=== PATIENT | male | born 1935 | race Caucasian/White ===

== ENCOUNTER 2016-06-22 05:18 | Inpatient (IN) | payer MEDICARE ==
[2016-06-22] VITALS (82 sets, daily range): BP systolic 82–161; BP diastolic 38–88
[~2016-06-22] VITALS: Ht 162.6 cm; Wt 55.8 kg
[2016-06-22] MEDS ORDERED: IV SET PRIMARY 1 EA INFUS.SET MC ONE ×3 (05:55→06:40)
[2016-06-22] MEDS ORDERED: IV NS 0.9% 500 ML IV ONE ×2 (05:55→14:00)
[2016-06-22] MEDS ORDERED: IV NS 0.9% 500 ML BAG IV ONE (06:00)
[2016-06-22 06:10] LABS: BASOPHILS # (AUTO) 0.1 /CMM (0.0-0.2); BASOPHILS % (AUTO) 0.4 % (0.0-2.0); EOSINOPHILS # (AUTO) 0.3 /CMM (0.0-0.7); EOSINOPHILS % (AUTO) 0.8 % (0.0-6.0); HEMATOCRIT 29 % (39-51); LYMPHOCYTES % (AUTO) 5.4 % (20.0-44.0); MEAN CORPUSCULAR HEMOGLOBIN 26 PG (26.0-33.0); MEAN CORPUSCULAR HGB CONC 31 g/dl (31.0-36.0); MEAN CORPUSCULAR VOLUME 85 fL (80-96); MONOCYTES # (AUTO) 0.2 /CMM (0.1-1.30); MONOCYTES % (AUTO) 0.6 % (2.0-12.0); NEUTROPHILS # (AUTO) 33.6 /CMM (1.8-8.9); NEUTROPHILS % (AUTO) 92.8 % (43.0-81.0); PLATELET COUNT (AUTO) 409 /CMM (150-450)
[2016-06-22 06:17] LABS: WHITE BLOOD COUNT (AUTO) 36.2 K/uL (4.3-11.0)
[2016-06-22] MEDS ORDERED: IV NS 0.9% 1,000 ML ONE ×3 (06:21→08:15)
[2016-06-22] MEDS ORDERED: CEFTRIAXONE 1GM BAG (ER ONLY) 50 ML IV ONE ×2 (06:21→06:30)
[2016-06-22 06:25] LABS: SODIUM SERUM 138 mmol/L (136-145)
[2016-06-22 06:26] LABS: CALCIUM, SERUM 8.5 mg/dL (8.5-10.1); CARBON DIOXIDE 30 mmol/L (21-32); CHLORIDE 102 mmol/L (98-107); GLUCOSE 89 mg/dL (74-106)
[2016-06-22 06:27] LABS: CREATININE 4.8 mg/dL (0.6-1.3); UREA NITROGEN, BLOOD 28 mg/dL (7-18)
[2016-06-22 06:29] LABS: TROPONIN I < 0.017 ng/mL (0.00-0.056)
[2016-06-22] MEDS ORDERED: VANCOMYCIN 1 GM in IV D5W 250 ML IV ONE ×2 (06:30→10:00)
[2016-06-22] MEDS ORDERED: IV NS 0.9% 1,000 ML BAG IV ONE ×4 (06:30→11:10)
[2016-06-22] MEDS ORDERED: AZITHROMYCIN 500 MG in IV D5W 250 ML IV ONE (06:30)
[2016-06-22 06:31] LABS: LACTIC ACID 1.3 mmol/L (0.4-2.0)
[2016-06-22 06:32] LABS: ALANINE AMINOTRANSFERASE 6 U/L (12-78); ALBUMIN 2.7 g/dL (3.4-5.0); ALKALINE PHOSPHATASE 114 U/L (46-116); ANISOCYTOSIS 1+; ASPARTATE AMINOTRANSFERASE 12 U/L (15-37); BAND % (MANUAL) 5 % (0.0-5.0); BILIRUBIN,DIRECT 0.1 mg/dL (0.0-0.2); BILIRUBIN,TOTAL 0.4 mg/dL (0.2-1.0); HYPOCHROMASIA 1+; INR 1.16 (0.87-1.13); LYMPHOCYTES % (MANUAL) 4 % (16-48); METAMYELOCYTES % 1 % (0-0); MONOCYTES % (MANUAL) 2 % (0-11.0); NEUTROPHILS % (MANUAL) 88 (42-76); PLATELET ESTIMATE INCREASED; PROTHROMBIN TIME 12.5 SECS (9.5-12.7)
[2016-06-22 06:33] LABS: OVALOCYTES FEW; TOTAL PROTEIN, SERUM 5.4 g/dL (6.4-8.2)
[2016-06-22] MEDS ORDERED: DOPamine 400 MG/D5W 250 ML RTU PIGGYBACK IV ONE (07:00)
[2016-06-22] MEDS ORDERED: DOPamine 400MG/D5W 250ML RTU 250 ML IV ONE (07:01)
[2016-06-22] MEDS ORDERED: IV SET PRIMARY PUMP SET 1 EA INFUS.SET MC ONE ×8 (07:01→15:40)
--- NOTE | 2016-06-22 07:02 | NUR ---
ATTEMPTED TO CALL PHARMACY FOR DOPAMINE DRIP; NO ANSWER.
--- NOTE | 2016-06-22 07:15 | NUR ---
DR. GOMES AT BS FOR CENTRAL LINE PLACEMENT.
--- NOTE | 2016-06-22 07:22 | NUR ---
BP 73/35 RECEIVED ORDERS TO INCREASE DOPAMINE TO 10MCG. ORDERS CARRIED OUT.
--- NOTE | 2016-06-22 07:25 | NUR ---
BP 71/40 PER MD TO INCREASE DOPAMINE TO 20MCG. ORDERS CARRIED OUT.
--- NOTE | 2016-06-22 07:41 | NUR ---
BP REMAINS LOW, PER MD TO INCREASE DOPAMINE TO 30MCG. ORDERS CARRIED OUT.
--- NOTE | 2016-06-22 07:46 | NUR ---
PT REPORT GIVEN TO ARTIE ALAS FOR DANI
--- NOTE | 2016-06-22 07:56 | NUR ---
CALLED [facility] SIGNAL WORKER, TO PAGE FOR PICC LINE INSERTION.
--- NOTE | 2016-06-22 08:15 | NUR ---
PAGED MERIT SYSTEM DIRECTOR FOR [facility] DR MARQUEZ
--- NOTE | 2016-06-22 08:20 | NUR ---
CALLED LEAD BUSINESS SYSTEMS ANALYST FOR [facility] FOR ICU BED
--- NOTE | 2016-06-22 08:21 | NUR ---
EVETTE HOLMAN AT FOR PICC LINE INSERTION. CONSENT OBTAINED PRIOR TO PICC LINE INSERTION.
--- NOTE | 2016-06-22 08:27 | NUR ---
PT ASSIGNED ICU 250 - CAN GO UP IN 20 MINUTES
--- NOTE | 2016-06-22 08:50 | NUR ---
LAISHA AT BS.
[2016-06-22] MEDS ORDERED: PANT40TA2 PO (08:57)
[2016-06-22] MEDS ORDERED: CALC667C6 PO (08:57)
[2016-06-22] MEDS ORDERED: LEVO200T8 PO (08:57)
[2016-06-22] MEDS ORDERED: ASPI81TA2 PO (08:57)
[2016-06-22] MEDS ORDERED: MAGN64TA9 PO (08:57)
[2016-06-22] MEDS ORDERED: TAMS0.4C34 PO (08:57)
[2016-06-22] MEDS ORDERED: FOLI0.8T PO (08:57)
[2016-06-22] MEDS ORDERED: ALLO100T PO ×2 (08:57→13:21)
[2016-06-22] MEDS ORDERED: APIX5TAB PO (08:57)
[2016-06-22] MEDS ORDERED: LEVO25TA9 PO (08:57)
[2016-06-22] MEDS ORDERED: CLIN300C97 PO (08:58)
--- NOTE | 2016-06-22 09:00 | NUR ---
DR. MARQUEZ AT BS FOR ABDIAL.
--- NOTE | 2016-06-22 09:05 | NUR ---
CALLED ICU FOR REPORT, NO NURSE ASSIGNED. WAITING FOR CALL BACK.
[2016-06-22] MEDS ORDERED: ONDANSETRON HCL/PF 4 MG/2 ML VIAL ONE (09:09)
--- NOTE | 2016-06-22 09:10 | NUR ---
DOPAMINE TITRATED DOWN PER PROTOCOL.
[2016-06-22] MEDS ORDERED: ONDANSETRON HCL/PF 4 MG/2 ML VIAL IV ONE (09:30)
[2016-06-22] MEDS ORDERED: NOREPINEPHRINE 8 MG in IV D5W 500 ML IV PRN ×2 (10:00→11:00)
[2016-06-22] MEDS ORDERED: ONDANSETRON HCL/PF 4 MG/2 ML VIAL IVP PRN (10:00)
[2016-06-22] MEDS ORDERED: ACETAMINOPHEN 325 MG TABLET PO PRN (10:00)
--- NOTE | 2016-06-22 10:14 | NUR ---
patient transported to ICu. VSS. Acls protocol observed
[2016-06-22] MEDS ORDERED: VANCOMYCIN 500 MG in IV D5W 100 ML IV PRN (10:30)
--- NOTE | 2016-06-22 10:30 | NUR ---
ICU/RN - Admission Pt received from ER via chey with dx Septic Shock, PNA, Sepis. Pt lethargic, alert to self. On O2 @ 3lpm via nasal cannula, with o2 saturation 92%. Denies pain or discomfort. On tele reading SR 61. Hypothermic, temp 94.8, currently on bear hugger warming blanket. Straight cath noted in placed by ER for urine sample, but insufficient amount of urine draining for sample. Pt anuric, with history of ESRD. Skin assessment done and documented with photos taken and placed in chart. On dopamine drip, titrated down accordingly. Safety and comfort measures in place. Will continue to monitor pt closely.
[2016-06-22] MEDS ORDERED: FEE PK DOSING 1 MIN EA MC ONE (10:35)
[2016-06-22 10:53] LABS: CALCIUM, SERUM 7.4 mg/dL (8.5-10.1); CREATININE 4.3 mg/dL (0.6-1.3); POTASSIUM 3.4 mmol/L (3.5-5.1)
[2016-06-22 11:00] LABS: ALBUMIN 2.4 g/dL (3.4-5.0); BILIRUBIN,DIRECT 0.1 mg/dL (0.0-0.2); BILIRUBIN,TOTAL 0.4 mg/dL (0.2-1.0)
[2016-06-22 11:03] LABS: LACTIC ACID 0.9 mmol/L (0.4-2.0)
[2016-06-22] MEDS ORDERED: SECONDARY IV SET 1 EA INFUS.SET MC ONE (11:05)
[2016-06-22] MEDS: PANTOPRAZOLE 40 MG VIAL IV SCH (11:10)
--- NOTE | 2016-06-22 11:35 | NUR ---
ICU/RN - Notes Pt noted to be hypoxic on O2 @ 6lpm via nasal cannula, O2 saturation 88%. Pt noted to be more confused, difficult to arouse and lethargic. Received orders from Dr De La Cruz for ABG and Pulmonolgist consult.
[2016-06-22 11:41] LABS: ABG BASE EXCESS -2.4 mmol/L; ABG OXYGEN SATURATION 91.1 % (92.0-98.5); ABG PCO2 64.7 mmHg (35.0-45.0); ABG PH 7.219 (7.350-7.450); ABG PO2 75.1 mmHg (75.0-100.0); ABG TOTAL HEMOGLOBIN 9.3 G/dL (13.5-18.0); AaDO2 172.2 mmHg; COHb 1.1 % (0.5-1.5); MetHb 1.3 % (0.0-1.5); O2Hb 88.9 % (94.0-97.0); SITE, ABG Right Radial; VENT MODE, BG SIMPLE MASK
--- NOTE | 2016-06-22 11:55 | NUR ---
ICU/RN - Notes Pt intubated by ER MD as ordered by Dr Pierre. Levophed drip titrated accordingly. Will start Diprivan sedation as blood pressure becomes optimal.
--- NOTE | 2016-06-22 11:59 | NUR ---
RT REPORT: ASSIT DR. GOMES, ( ) FOR PT. 80 Y OLD MALE INTUBATED @ 1153 ETT #7.5 @ 23 CM GOOD COLOR EXCHANGED T/O CAPNOGRAPHY PLACED ON VENT WITH NOTED SETTINGS, ALARMS ARE SET AND FUNCTIONAL, B/S RALES/RHONCHI BILATERALLY SUX' FOR MINIMAL BURGESS SECRETIONS, NO DISTRESS NOTED CONTINUED FOR MONITOR. VENT PLUGGED INTO RED OUTLET. EQUAL CHEST RISE NOTED PT. AMBU BAG REMAIN AT THE BEDSIDE. Addendum: 06/22/16 at 1725 by PEPE HONG RT Amended: Links added.
[2016-06-22] MEDS ORDERED: PIPERACILLIN /TAZOBACTAM 3.375 G in IV D5W 50 ML IV SCH (12:00)
[2016-06-22] MEDS: IV NS 0.9% 1,000 ML IV PRN ×2 (12:00→13:12)
[2016-06-22] MEDS: PIPERACILLIN /TAZOBACTAM 2.25 G in IV D5W 50 ML IV SCH ×2 (12:09→20:33)
[2016-06-22] MEDS: PROPOFOL 100 ML IV PRN (12:16)
[2016-06-22 13:13] LABS: ABG BASE EXCESS -1.9 mmol/L; ABG OXYGEN SATURATION 98.6 % (92.0-98.5); ABG PCO2 28.7 mmHg (35.0-45.0); ABG PO2 190.7 mmHg (75.0-100.0); ABG TOTAL HEMOGLOBIN 9.5 G/dL (13.5-18.0); AaDO2 493.6 mmHg; MetHb 1.2 % (0.0-1.5); O2Hb 96.4 % (94.0-97.0); SITE, ABG Right Brachial; VT, ABG 500 mL
--- NOTE | 2016-06-22 13:20 | NUR ---
RT CHANGES: POST ABG @ 1320 RR DECREASED TO 12 TIDAL VOLUME DECREASED TO 450 ML (PRE SCHOOL TEACHER)PER DR. MARTINEZ T/O ORDER. PT. ROSA MARIA. SETTINGS. CONTINUE FOR MONITORING. FIO2 WILL BE TITRATED Addendum: 06/22/16 at 1725 by PEPE HONG RT Amended: Links added.
[2016-06-22] MEDS ORDERED: ATEN25TA PO (13:21)
[2016-06-22] MEDS ORDERED: EPOETIN ALFA (10,000 UNIT) 10,000 UNIT/ML VIAL SQ ONE (14:30)
[2016-06-22] MEDS ORDERED: PHENYLEPHRINE 80 MG in IV D5W 250 ML IV PRN ×4 (15:00)
[2016-06-22] MEDS ORDERED: NOREPINEPHRINE 16 MG in IV D5W 500 ML IV PRN (16:00)
[2016-06-22] MEDS: NOREPINEPHRINE 16 MG in IV D5W 500 ML IV PRN (16:31)
--- NOTE | 2016-06-22 17:00 | NUR ---
ICU/RN - Notes Hemodialysis completed with 1.5 L output. Vital signs optimal.
--- NOTE | 2016-06-22 17:05 | NUR ---
ICU/RN - Notes Specialty air mattress ordered for pt, but per [employer], no supply in air mattress at this time, will be available tomorrow morning.
--- NOTE | 2016-06-22 17:24 | NUR ---
RT END OF THE SHIFT REPORT: PT. 80 Y OLD MALE REMAIN ORALLY INTUBATED ETT#7.5 @ 23CM ON VENT WITH NOTED SETTINGS, ALARMS ARE SET AND FUNCTIONAL, B/S RALES/RHONCHI BILATERALLY SUX' FOR MINIMAL BURGESS SECRETIONS, NO DISTRESS NOTED T/O SHIFT CHANGES DONE POST ABG T/O SHIFT. CONTINUED FOR MONITOR. VENT PLUGGED INTO RED OUTLET. EQUAL CHEST RISE NOTED. HME CHANGED, AMBU BAG REMAIN AT THE BEDSIDE. PT. REMAIN STABLE. REPORT WILL BE PASS TO PM SHIFT. Addendum: 06/22/16 at 1725 by PEPE HONG RT Amended: Links added.
--- NOTE | 2016-06-22 17:52 | NUR ---
ICU/RN - Notes Medina catheter inserted, minimum urine noted, pt anuric at this time. Oral tube inserted as ordered with positive placement auscultated.
--- NOTE | 2016-06-22 18:45 | NUR ---
ICU/RN - Notes Pt remains sedated on Diprivan drip. Levophed titrated accordingly. Current temp 99.2 F. Pt repositioned for comfort. Bilateral heels kept elevated. Family at bedside. Will endorse to night nurse for continuity of care.
--- NOTE | 2016-06-22 20:00 | NUR ---
FREIGHT HANDLER - NOTES - RECEIVED PT IN BED ADMITTED FOR SEPTIC SHOCK, PNA, PT IS INTUBATED W 7.5 ETT 23 CM AT LIP VENT SETTINGS AC 12 450 40% 0. PT HAS OGT CLAMPED, NPO. PT HAS F/C BUT NO URINE OUTPUT, LAST HD 06/22 1.5 L OUT. PT HAS REDNESS ON SACRUM AND REDNESS ON BILAT HEELS, AND SKIN TEAR RIGHT FOREARM. PT HAS JESSICA PICC LINE, R FA 18G, F AC 18G, L SUBCLAV PERMACATH AND LIDYA AV FISTULA. WILL CONTINUE TO MONITOR
--- NOTE | 2016-06-22 20:18 | NUR ---
PT RECEIVED ON VENT VIA ETT, SETTINGS CHARTED AMBU BAG AT BEDSIDE ALARMS SET AND AUDIBLE SUCTIONED A SMALL AMOUNT OF THICK WHITE SECRETIONS BREATH SOUNDS EQUAL BILATERAL COARSE PT RECEIVING NO BREATHING TX AT THIS TIME Addendum: 06/22/16 at 2020 by RALPH COMER RT Amended: Links added.
[2016-06-23] VITALS (97 sets, daily range): BP systolic 92–120; BP diastolic 35–61
[2016-06-23 04:33] LABS: BASOPHILS # (AUTO) 0.3 /CMM (0.0-0.2); BASOPHILS % (AUTO) 0.5 % (0.0-2.0); HEMATOCRIT 30 % (39-51); HEMOGLOBIN 9.4 g/dL (13.5-17.5); LYMPHOCYTES # (AUTO) 2.1 /CMM (0.8-4.8); LYMPHOCYTES % (AUTO) 3.6 % (20.0-44.0); MEAN CORPUSCULAR HEMOGLOBIN 27 PG (26.0-33.0); MEAN CORPUSCULAR HGB CONC 32 g/dl (31.0-36.0); MEAN CORPUSCULAR VOLUME 85 fL (80-96); MONOCYTES # (AUTO) 0.6 /CMM (0.1-1.30); MONOCYTES % (AUTO) 1.1 % (2.0-12.0); NEUTROPHILS # (AUTO) 55.8 /CMM (1.8-8.9); NEUTROPHILS % (AUTO) 94.8 % (43.0-81.0); PLATELET COUNT (AUTO) 521 /CMM (150-450); RDW COEFFICIENT OF VARIATION 26.5 (11.5-15.0)
[2016-06-23 04:39] LABS: WHITE BLOOD COUNT (AUTO) 58.8 K/uL (4.3-11.0)
--- NOTE | 2016-06-23 05:00 | NUR ---
WBC 58.8 CRITICAL HIGH LAB VALUE, PT ON ABX, NOT IN ANY DISTRESS, WILL CONTINUE TO MONITOR
[2016-06-23] MEDS: PIPERACILLIN /TAZOBACTAM 2.25 G in IV D5W 50 ML IV SCH ×3 (05:04→20:27)
[2016-06-23 05:26] LABS: ALBUMIN 2.2 g/dL (3.4-5.0); BILIRUBIN,TOTAL 0.4 mg/dL (0.2-1.0); CALCIUM, SERUM 7.2 mg/dL (8.5-10.1); CREATININE 4.3 mg/dL (0.6-1.3); MAGNESIUM 1.6 mg/dL (1.8-2.4); PHOSPHORUS 3.2 mg/dL (2.5-4.9); POTASSIUM 3.7 mmol/L (3.5-5.1); TOTAL PROTEIN, SERUM 4.7 g/dL (6.4-8.2)
[2016-06-23] MEDS ORDERED: IV SET PRIMARY PUMP SET 1 EA INFUS.SET MC ONE ×2 (05:28→17:53)
[2016-06-23 05:35] LABS: BAND % (MANUAL) 3 % (0.0-5.0); LYMPHOCYTES % (MANUAL) 2 % (16-48); MONOCYTES % (MANUAL) 3 % (0-11.0); NEUTROPHILS % (MANUAL) 92 (42-76); PLATELET ESTIMATE GIANT PLATELET SEEN
[2016-06-23 05:36] LABS: ANISOCYTOSIS 3+; HYPOCHROMASIA 3+
[2016-06-23] MEDS: NOREPINEPHRINE 16 MG in IV D5W 500 ML IV PRN ×2 (07:07→12:08)
[2016-06-23] MEDS: PROPOFOL 100 ML IV PRN ×2 (07:08→17:57)
[2016-06-23] MEDS: IV NS 0.9% 1,000 ML IV PRN (07:09)
--- NOTE | 2016-06-23 08:00 | NUR ---
ICU/RN PT IS INTUBATED ON THE VENT ,AC MODE.SEDATED ON DIPRIVAN.OL LEVOPHED DRIP.RIGHT ARM HAS PICC LINE .IV INFUSING ORDERED.PT HAS ESRD ON HD .LEFT ARM FISTULA .LFT CHEST HD CATH.PT IS ANURIC.MULTIPLY BRUISES AND SKIN TEARS NOTED ALL OVER THE BODY.REDNESS ON LOWER BACK NOTED.KCI MATRASS ORDERED.SUCTION PROVIDED.REPOSITION FOR COMFORT
[2016-06-23] MEDS: PANTOPRAZOLE 40 MG VIAL IV SCH (08:39)
[2016-06-23 08:59] LABS: ABG BASE EXCESS -1.5 mmol/L; ABG OXYGEN SATURATION 96.5 % (92.0-98.5); ABG PCO2 52.9 mmHg (35.0-45.0); ABG PH 7.297 (7.350-7.450); ABG PO2 98.9 mmHg (75.0-100.0); ABG TOTAL HEMOGLOBIN 9.7 G/dL (13.5-18.0); AaDO2 125.5 mmHg; COHb 0.9 % (0.5-1.5); MetHb 1.1 % (0.0-1.5); O2Hb 94.6 % (94.0-97.0); PEEP,BG 0 cm H2O; SITE, ABG Left Brachial; VT, ABG 450 mL
--- NOTE | 2016-06-23 09:12 | NUR ---
WOUND CARE CONSULT: PT PRESENTS WITH INTACT DEEP TISSUE INJURY TO SACRUM, BRUISING AND SKIN TEARS, PRESENT ON ADMISSION. PT TO BE PLACED ON FIRST STEP MATTRESS. PT IS IMMOBILE, INTUBATED AND VERY EDEMATOUS (4+ PITTING EDEMA TO LOWER EXTREMITIES. SKIN IS VERY FRAGILE AND TEARS EASILY. ALL SKIN PROTECTION MEASURES AND WOUND RECOMMENDATIONS DISCUSSED WITH NURSING STAFF. MD IN AGREEMENT WITH PLAN OF CARE. Addendum: 06/23/16 at 0914 by WALE BROWNING WNDNU Amended: Links added.
[2016-06-23] MEDS: ASPIRIN 81 MG TAB.CHEW PO SCH (09:32)
[2016-06-23] MEDS ORDERED: LIDOCAINE 1%-EPI 1:100,000 20 ML VIAL TP ONE (10:00)
[2016-06-23] MEDS ORDERED: SECONDARY IV SET 1 EA INFUS.SET MC ONE (10:18)
--- NOTE | 2016-06-23 10:30 | NUR ---
ICU/RN DR BRADSHAW REMOVED LEFT CHEST HD CATH.NEW DRESSING APPLIED.PT TOLERATED WELL.LABS REVIEW.NEW ORDERS RECEIVED FAMILY AT BEDSIDE.
[2016-06-23] MEDS: Magnesium 1GM/D5W 100ML PREMIX 100 ML IV SCH ×3 (11:47→12:07)
--- NOTE | 2016-06-23 17:00 | NUR ---
ICU/RN PM CARE PROVIDED.PT PLACED ON KCI MATRASS.NEW PICC LINE DRESSING APPLIED.WOUND DRESSING DONE ORDERED.SUCTION PROVIDED.REPOSITION FOR COMFORT.CONTINUE MONITORING
[2016-06-23] MEDS: MICAFUNGIN SODIUM 100 MG in IV NS 0.9% 100 ML IV SCH (19:30)
--- NOTE | 2016-06-23 19:49 | NUR ---
SALES AND CUSTOMER RELATIONS REP - NOTES - RECEIVED PT IN BED ADMITTED FOR SEPTIC SHOCK, PNA, PT IS INTUBATED W 7.5 ETT 23 CM AT LIP VENT SETTINGS AC 12 500 40% 0. PT HAS OGT CLAMPED, NPO. PT HAS F/C BUT NO URINE OUTPUT, LAST HD 06/22 1.5 L OUT. PT HAS REDNESS ON SACRUM AND REDNESS ON BILAT HEELS, AND SKIN TEAR RIGHT FOREARM. PT HAS JESSICA PICC LINE, R FA 18G, F AC 18G, AND LIDYA AV FISTULA. WILL CONTINUE TO MONITOR
--- NOTE | 2016-06-23 22:01 | NUR ---
PT RECEIVED INTUBATED WITH 7.5 ETT SECURED AT 23CM AT THE LIP. NO RESP DISTRESS NOTED. PT TOLERATING VENT SETTINGS. SX'D FOR MOD AMT OF THICK WHITE SECRETIONS. VENT ALARMS SET AND AUDIBLE. AMBU BAG AT [facility]. VENT PLUGGED INTO RED OUTLET. WILL CONTINUE TO MONITOR. Addendum: 06/23/16 at 2208 by HERMINIO HINES RT Amended: Links added.
--- NOTE | 2016-06-23 23:00 | NUR ---
PT PLACED ON BIPAP FOR NIGHT Addendum: 06/24/16 at 0728 by ARJUN QUINTANA RN WRONG PT
[2016-06-24] VITALS (79 sets, daily range): BP systolic 88–131; BP diastolic 34–61
--- NOTE | 2016-06-24 03:00 | NUR ---
PT WANTS BIPAP OFF, PLACED ON NONREBREATHER, TOLERATING WELL Addendum: 06/24/16 at 0727 by ARJUN QUINTANA RN WRONG PT
[2016-06-24 05:00] LABS: HEMATOCRIT 27 % (39-51); HEMOGLOBIN 8.5 g/dL (13.5-17.5); MEAN CORPUSCULAR HEMOGLOBIN 27 PG (26.0-33.0); MEAN CORPUSCULAR HGB CONC 32 g/dl (31.0-36.0); MEAN CORPUSCULAR VOLUME 84 fL (80-96); PLATELET COUNT (AUTO) 448 /CMM (150-450); RED BLOOD CELL COUNT(AUTO) 3.18 MIL/uL (4.5-6.0)
[2016-06-24] MEDS: PIPERACILLIN /TAZOBACTAM 2.25 G in IV D5W 50 ML IV SCH ×3 (05:04→21:46)
[2016-06-24 05:18] LABS: WHITE BLOOD COUNT (AUTO) 54.8 K/uL (4.3-11.0)
[2016-06-24 05:24] LABS: CALCIUM, SERUM 7.2 mg/dL (8.5-10.1); CREATININE 4.7 mg/dL (0.6-1.3); MAGNESIUM 2.6 mg/dL (1.8-2.4); PHOSPHORUS 4.3 mg/dL (2.5-4.9); POTASSIUM 4.2 mmol/L (3.5-5.1)
[2016-06-24] MEDS ORDERED: IV SET PRIMARY PUMP SET 1 EA INFUS.SET MC ONE ×3 (05:37→15:40)
--- NOTE | 2016-06-24 05:50 | NUR ---
PT PLACED BACK ON BIPAP PER PT REQUEST.
[2016-06-24 05:53] LABS: PLATELET ESTIMATE INCREASED
[2016-06-24 05:54] LABS: ANISOCYTOSIS 3+; HYPOCHROMASIA 2+
[2016-06-24] MEDS: PROPOFOL 100 ML IV PRN ×2 (06:00→16:14)
[2016-06-24] MEDS: IV NS 0.9% 1,000 ML IV PRN (06:00)
--- NOTE | 2016-06-24 06:00 | NUR ---
PT COULD NOT TOLERATE BIPAP, SO PT WAS PLACED BACK ON NONREBREATHER, 02SAT >94%, TOLERATING WELL, NO SEVERE DISTRESS Addendum: 06/24/16 at 0727 by ARJUN QUINTANA RN WRONG PT
[2016-06-24] MEDS: NOREPINEPHRINE 16 MG in IV D5W 500 ML IV PRN ×2 (06:01→18:01)
--- NOTE | 2016-06-24 07:15 | NUR ---
SUBWAY REPAIR SUPERVISOR NOTES RECEIVED PATIENT SEDATED , RESPONSIVE TO PAIN STIMULI , NOT IN ACUTE DISTRESS , RESPIRATIONS EVEN AND UNLABORED , SPO2 OF 100% VIA MECHANICAL VENTILATOR SETTINGS ORDERED , ETT 7.08/[address] , SB 58 ON BEDSIDE MONITOR , OJT IN PLACED M VERFIIED PLACEMENT VIA AUSCULTATION NOTED WITH GURGLING SOUND AROUND STOMACH AREA , FC DRAINING VIA GRAVITY WITH 3ML URINE CLOUDY TEA COLORED URINE , ON KCI MATTRESS , IF OF R FA # 20 PATENT AND INTACT , JESSICA PICC LINE PATENT AND INTACT WITH LEVOPHED @ 4MG/MIN , NS @ 50ML/HR INFUSING WELL , LIDYA AV SHUNT WITH BRUIT AND THRILL UP[ON PALPATION , ALL NEED ATTENDED , BED ON LOW AND LOCKED POSITION , SIDE RAILS X2 , HOB @ 35 , WILL CONTINUE TO MONITOR
--- NOTE | 2016-06-24 08:10 | NUR ---
HOUSEHOLD ASSISTANT NOTES DR MARQUEZ AT BEDSIDE , DISCUSSED AM LABS AND CHEST XRAY , WBC OF 54.8 NO FEVER , NO HEMATOLOGY CONSULT DONE , WEANING FOR TODAY PER PULMO , PT HAS NO URINE OUTPUT, PER MD DC COPELAND CATHETER , VERIFIED IVF OF NS @ 50ML/HR CHEST XRAY RESULT SHOWS WORSENING CHF , PER MD DISCONTINUE IVF , START TUBE FEEDING OF NOVASOURCE @ 40ML/HR , ORDERS CARRIED OUT
[2016-06-24] MEDS: ASPIRIN 81 MG TAB.CHEW PO SCH (08:46)
[2016-06-24] MEDS: PANTOPRAZOLE 40 MG VIAL IV SCH (08:46)
--- NOTE | 2016-06-24 09:00 | NUR ---
DRILLING ENGINEERING MANAGER NOTES HD NURSE AT BEDSIDE , PT STABLE AT THIS TIME , V/S STABLE , NOT IN AC [place] DISTRESS , , LEVOPHED INCREASED TO 5MCG/MIN FOR BP SUPPORT WITH HD , WILL CONTINUE TO MONITOR
--- NOTE | 2016-06-24 09:11 | NUR ---
BANDER AND CELLOPHANER MACHINE NOTES DR GILLILAND AT BEDSIDE , NOTIFIED PT ON LEVOPHED @ 2MCG/MIN , BP OF 101/55 , NO URINE OUTPUT FC DISCONTINUED , IVF DISCONTINUED PER DR MAQRUEZ ORDERED , DISCUSSED AM LABS AND CHEST XRAY RESULT MD CLEANING
--- NOTE | 2016-06-24 09:31 | NUR ---
METAL TECHNICIAN NOTES DR MARTINEZ AT BEDSIDE , NOTIFIED PT IS OFF DIPRIVAN SINCE 0700 AM , PT STILL SEDATED , RESPONSIVE TO TACTILE STIMULI , OPENS EYES , DOESNT FOLLOWS COMMANDS , PER MD KEEP SEDATION OFF UNTIL PT IS FULLY AWAKE FOR WEANING TRIAL , , DISCUSSED AM LABS , CHEST XRAY , IVF OF NS @ 50ML/HR DISCONTINUED DUE TO INCREASING CHF PER CHEST XRAY , TUBE FEEDING OF NOVASOURCE @ 40ML/HR PER DR MARQUEZ , VERIFIED IF HE WANTS TO START IT PT WILL UNDERGO WEANING TRIAL , PER MD START TUBE FEEDING AFTER WEANING TRIAL .
[2016-06-24] MEDS ORDERED: SECONDARY IV SET 1 EA INFUS.SET MC ONE ×2 (12:44→21:45)
[2016-06-24] MEDS ORDERED: IV NS 0.9% 250 ML IV ONE (12:44)
--- NOTE | 2016-06-24 13:00 | NUR ---
DANCE PROFESSOR NOTES PT STABLE S/P HEMODIALYSIS TOLERATED WELL , EPOGEN 10 000 UNITS GIVEN , BP OF 120/50 WILL TITRATE DOWN LEVOPHED TO 3MCG/MIN , WILL CONTINUE TO MONITOR
[2016-06-24] MEDS: Z GUARD REMEDY 2 OZ OINT TP PRN (13:40)
[2016-06-24] MEDS ORDERED: VANCOMYCIN 1 GM in IV D5W 250 ML IV ONE (14:00)
[2016-06-24] MEDS ORDERED: EPOETIN ALFA (10,000 UNIT) 10,000 UNIT/ML VIAL SQ ONE (15:00)
--- NOTE | 2016-06-24 15:26 | NUR ---
RT END OF THE SHIFT REPORT: PT. 80 Y OLD MALE REMAIN ORALLY INTUBATED ETT#7.5 @ 23CM ON VENT WITH NOTED SETTINGS, ALARMS ARE SET AND FUNCTIONAL, B/S RALES/RHONCHI BILATERALLY SUX' FOR MINIMAL BURGESS SECRETIONS, NO DISTRESS NOTED T/O SHIFT NOT AWAKE ENOUGH FOR WEANING CONTINUED FOR MONITOR. VENT PLUGGED INTO RED OUTLET. EQUAL CHEST RISE NOTED. HME CHANGED, AMBU BAG REMAIN AT THE BEDSIDE. PT. REMAIN STABLE. Addendum: 06/24/16 at 1526 by PEPE HONG RT Amended: Links added.
--- NOTE | 2016-06-24 15:38 | NUR ---
WEB WEAVER NOTES NOTIFIED DR MARTINEZ THAT PT STILL ALTERED , LETHARGIC SEDATION HELD SINCE 0700 , MD AWARE , CONTINUED CURRENT VENT SETTINGS , HOLD SEDATION , WILL HOLD WEANING TODAY ,
--- NOTE | 2016-06-24 16:00 | NUR ---
CRANBERRY BOG SUPERVISOR NOTES DIPRIVAN RE STARTED PT NOTED WITH DISCOMFORT , HR OF 110 , STARTED @ 5MCG/MIN , WILL CONTINUE TO MONITOR
[2016-06-24 16:12] LABS: BAND % (MANUAL) 5 % (0.0-5.0); LYMPHOCYTES % (MANUAL) 10 % (16-48); MONOCYTES % (MANUAL) 1 % (0-11.0); NEUTROPHILS % (MANUAL) 84 (42-76)
[2016-06-24] MEDS: RENAL NOVASOURCE 1,000 ML BOTTLE GT PRN (16:14)
[2016-06-24 16:17] LABS: OVALOCYTES 1+; TEAR DROP CELLS 1+
--- NOTE | 2016-06-24 20:00 | NUR ---
CISTERN ROOM WORKING SUPERVISOR NOTES RECEIVED PT IN BED, SEDATED. ON VENT VIA ETT AT ORDERED SETTINGS, ROSA MARIA WELL. TELE READS SB AT 55 BPM. NO S/S OF ACUTE DISTRESS. OGT IN PLACE RUNNING NOVASOURCE AT 40 ML/HR WITH 10 GASTRIC RESIDUAL. PT IS ANURIC. JESSICA PICC LINE RUNNING DIPRIVAN AT 5 MCG/KG/MIN AND LEVO AT 4 MCG/MIN AND NS AT TKO. LRFA 20 PIV, S/L. LIDYA AV SHUNT WITH BRUIT AND THRILL. MULTIPLE SKIN WOUNDS WITH INTACT DRESSINGS. BILATERAL MITTENS ON PATIENT FOR SAFETY AND PT PULLS ON LINES/TUBES. ON KCI MATTRESS. TURNED AND REPOSITIONED. SIDE RAILS X3. HOB ELEVATED.
--- NOTE | 2016-06-24 21:36 | NUR ---
PT RECEIVED INTUBATED WITH 7.5 ETT SECURED AT 23CM AT THE LIP. NO RESP DISTRESS NOTED. PT TOLERATING VENT SETTINGS. SX'D FOR MOD AMT OF THICK WHITE SECRETIONS. VENT ALARMS SET AND AUDIBLE. AMBU BAG AT [facility]. VENT PLUGGED INTO RED OUTLET. WILL CONTINUE TO MONITOR. Addendum: 06/24/16 at 2136 by HERMINIO HINES RT Amended: Links added.
[2016-06-24] MEDS: MICAFUNGIN SODIUM 100 MG in IV NS 0.9% 100 ML IV SCH (21:46)
[2016-06-25] VITALS (80 sets, daily range): BP systolic 74–130; BP diastolic 34–77
[2016-06-25 04:48] LABS: HEMATOCRIT 26 % (39-51); HEMOGLOBIN 8.3 g/dL (13.5-17.5); MEAN CORPUSCULAR HEMOGLOBIN 27 PG (26.0-33.0); MEAN CORPUSCULAR HGB CONC 32 g/dl (31.0-36.0); MEAN CORPUSCULAR VOLUME 84 fL (80-96); PLATELET COUNT (AUTO) 462 /CMM (150-450); RDW COEFFICIENT OF VARIATION 28.2 (11.5-15.0); RED BLOOD CELL COUNT(AUTO) 3.07 MIL/uL (4.5-6.0)
[2016-06-25 04:57] LABS: CALCIUM, SERUM 7.7 mg/dL (8.5-10.1); CREATININE 3.7 mg/dL (0.6-1.3); MAGNESIUM 2.1 mg/dL (1.8-2.4); PHOSPHORUS 3.4 mg/dL (2.5-4.9); POTASSIUM 3.8 mmol/L (3.5-5.1)
[2016-06-25] MEDS: PIPERACILLIN /TAZOBACTAM 2.25 G in IV D5W 50 ML IV SCH ×2 (04:59→12:07)
[2016-06-25 05:24] LABS: BAND % (MANUAL) 1 % (0.0-5.0); LYMPHOCYTES % (MANUAL) 4 % (16-48); MONOCYTES % (MANUAL) 3 % (0-11.0); NEUTROPHILS % (MANUAL) 92 (42-76); PLATELET ESTIMATE ADEQUATE
[2016-06-25 05:26] LABS: HYPOCHROMASIA 1+
[2016-06-25 05:27] LABS: ANISOCYTOSIS 1+; OVALOCYTES 1+; TEAR DROP CELLS 1+
[2016-06-25] MEDS: PROPOFOL 100 ML IV PRN (06:19)
--- NOTE | 2016-06-25 07:45 | NUR ---
ICU/RN PT IS ON THE VENT AC MODE.INTUBATED.SEDATED ON DIPRIVAN 5 MCG.VERY WEAK ,FOLLOWS COMMAND.RESTLESS BILATERAL MITTENS ON.RIGHT PICC LINE .PT HAS LOW BP ON LEVOPHED.OG TUBE INFUSING WITH RENAL NOVASOURCE ORDERED.NO RESIDUAL NOTED.ANURIC ON HD .LEFT UPPER ARM IV FISTULA.MULTIPLY BRUISES AND SKIN TEARS NOTED.LOWER BACK DTI AND REDNESS ON BERNARD AREA NOTED.SUCTION PROVIDED.REPOSITION FOR COMFORT.PT HAS LIQUID STOOL. NOTIFIED.NEW ORDERS RECEIVED.LABS REVIEW.
[2016-06-25] MEDS: PANTOPRAZOLE 40 MG VIAL IV SCH (08:21)
[2016-06-25] MEDS: ASPIRIN 81 MG TAB.CHEW PO SCH (08:21)
[2016-06-25] MEDS: MORPHINE SULFATE INJ 2 MG/ML DISP.SYRIN IV PRN (08:34)
[2016-06-25] MEDS ORDERED: DC PROPOFOL WHEN EXTUBATED XX PRN (09:00)
--- NOTE | 2016-06-25 09:00 | NUR ---
ICU/RN AM CARE PROVIDED.DUE MEDS ARE GIVEN ORDERED.FAMILY AT BEDSIDE.
[2016-06-25 10:06] LABS: ABG BASE EXCESS -0.7 mmol/L; ABG OXYGEN SATURATION 96.4 % (92.0-98.5); ABG PCO2 45.5 mmHg (35.0-45.0); ABG PH 7.356 (7.350-7.450); ABG PO2 97.2 mmHg (75.0-100.0); ABG TOTAL HEMOGLOBIN 8.8 G/dL (13.5-18.0); AaDO2 135.7 mmHg; MetHb 1.3 % (0.0-1.5); O2Hb 94.2 % (94.0-97.0); PEEP,BG 0 cm H2O; SITE, ABG Right Radial; VT, ABG 500 mL
--- NOTE | 2016-06-25 12:15 | NUR ---
ICU/RN PT PLACED ON SIMV MODE.DIPRIVAN STOP.CONTINUE MONITORING.
[2016-06-25] MEDS ORDERED: METRONIDAZOLE 500 MG TABLET GT SCH (13:00)
[2016-06-25 14:02] LABS: ABG BASE EXCESS -0.4 mmol/L; ABG OXYGEN SATURATION 97.8 % (92.0-98.5); ABG PCO2 41.8 mmHg (35.0-45.0); ABG PH 7.387 (7.350-7.450); ABG PO2 137.7 mmHg (75.0-100.0); ABG TOTAL HEMOGLOBIN 8.9 G/dL (13.5-18.0); AaDO2 99.4 mmHg; COHb 0.2 % (0.5-1.5); MetHb 1.5 % (0.0-1.5); O2Hb 96.1 % (94.0-97.0); PEEP,BG 5 cm H2O; SITE, ABG Right Radial; VENT MODE, BG SIMV 4 / PS 12; VT, ABG 500 mL
--- NOTE | 2016-06-25 14:05 | NUR ---
PT EXTUBATED PER MD ORDER. PLACED ON N/C ROSA MARIA WELL AT THIS TIME.
--- NOTE | 2016-06-25 14:15 | NUR ---
ICU/RN PT IS EXTUBATED .TOLERATED WELL .ON 3 L N/C ,SAT O2-100%.FAMILY AT BEDSIDE.CONTINUE MONITORING.
--- NOTE | 2016-06-25 16:20 | NUR ---
ICU/RN PM CARE PROVIDED.WOUND CARE DONE ORDERED.REPOSITION FOR COMFORT.
[2016-06-25] MEDS: NOREPINEPHRINE 16 MG in IV D5W 500 ML IV PRN (16:50)
--- NOTE | 2016-06-25 18:29 | NUR ---
ICU/RN PT IS AWAKE.ON 3L N/C SAT O2-100%.ON LEVOPHED DRIP.AFEBRILE NO PAIN REPORTED AT THIS TIME.PT IS NPO.OG TUBE REMOVED.SWALLOW EVAL AND PT EVAL ORDERED.WOUND DRESSING DONE ORDERED.REPOSITION FOR COMFORT.
[2016-06-25] MEDS ORDERED: IV NS 0.9% 250 ML IV ONE (18:46)
[2016-06-25] MEDS ORDERED: DOSING PER PHARMACY-AMIKACI IV XX PRN (19:00)
--- NOTE | 2016-06-25 20:00 | NUR ---
CELL TESTER DF RECEIVED PT TO ROOM #251 PT EXTUBATED TODAY AROUND 1430.PT DOING WELL ON N/C@4LPM WITH O2SAT OF 97% RR OF 18. PT LETHARGIC, RESPONDS TO VERBAL STIMULI,FOLLOWING SIMPLE COMMANDS. PT ON LEVOPHED AT 5MCG FOR BP SUPPORT. VSS.NAD NOTED.
[2016-06-25] MEDS ORDERED: FEE PK DOSING 1 MIN EA MC ONE (20:12)
[2016-06-25] MEDS: MICAFUNGIN SODIUM 100 MG in IV NS 0.9% 100 ML IV SCH (20:13)
[2016-06-25] MEDS: METRONIDAZOLE 500MG/ NS 100ML 500 MG in PREMIX 1 EA IV SCH (20:35)
[2016-06-25] MEDS ORDERED: AMIKACIN 500 MG in IV D5W 100 ML IV ONE (21:00)
[2016-06-26] VITALS (75 sets, daily range): BP systolic 77–142; BP diastolic 31–87
[2016-06-26] MEDS: METRONIDAZOLE 500MG/ NS 100ML 500 MG in PREMIX 1 EA IV SCH ×3 (04:20→21:28)
[2016-06-26 04:51] LABS: CALCIUM, SERUM 7.9 mg/dL (8.5-10.1); CREATININE 4.4 mg/dL (0.6-1.3); POTASSIUM 3.8 mmol/L (3.5-5.1)
--- NOTE | 2016-06-26 05:10 | NUR ---
PARACHUTE MANUFACTURING SUPERVISOR DF PT,S BP OF 81/41 PT ON 2MCG LEVOPHED ATTEMPTING TO WEAN PT OFF LEVOPHED. INCREASED LEVOPHED TO 4MCG BP OF 114/51. @535 HD RN BILL AT BEDSIDE FOR HEMODIALYSIS.PT WITH HX OF DECREASED BP DURING HD WILL REMAIN ON 4MCG DURING HD FOR BP SUPPORT.
[2016-06-26] MEDS: LEVOTHYROXINE SODIUM 25 MCG TABLET PO SCH (07:30)
[2016-06-26 07:54] LABS: HEMATOCRIT 28 % (39-51); HEMOGLOBIN 8.5 g/dL (13.5-17.5); MEAN CORPUSCULAR HEMOGLOBIN 26 PG (26.0-33.0); MEAN CORPUSCULAR HGB CONC 31 g/dl (31.0-36.0); MEAN CORPUSCULAR VOLUME 85 fL (80-96); PLATELET COUNT (AUTO) 413 /CMM (150-450); RDW COEFFICIENT OF VARIATION 27.5 (11.5-15.0); RED BLOOD CELL COUNT(AUTO) 3.23 MIL/uL (4.5-6.0)
--- NOTE | 2016-06-26 08:00 | NUR ---
ICU/RN INITIAL NOTES,AM RECEIVED REPORT FROM NIGHT NURSE. PT LETHARGIC, YET FOLLOWS COMMANDS. ON NASAL CANULA, NO ACUTE DISTRESS NOTED, PT EXTUBATED YESTERDAY. PT ON TELE, [place]. ONGOING HD AT THIS TIME,TOLERATING WELL,VSS. AT BEDSIDE. LOW DOSE LEVO FOR BLOOD PRESSURE SUPPORT. ALL NEEDS WILL BE MET, SAFETY MEASURES TAKEN, BED IN LOW POSITION, SIDE RAILS UP. WILL CONTINUE CARE
[2016-06-26 08:11] LABS: WHITE BLOOD COUNT (AUTO) 43.7 K/uL (4.3-11.0)
[2016-06-26 08:22] LABS: ABG BASE EXCESS -0.3 mmol/L; ABG OXYGEN SATURATION 96.3 % (92.0-98.5); ABG PH 7.403 (7.350-7.450); ABG PO2 95.9 mmHg (75.0-100.0); ABG TOTAL HEMOGLOBIN 9.5 G/dL (13.5-18.0); AaDO2 92.7 mmHg; COHb 0.6 % (0.5-1.5); MetHb 1.1 % (0.0-1.5); O2Hb 94.7 % (94.0-97.0); SITE, ABG Right Radial; VENT MODE, BG 3.5L N/C
[2016-06-26] MEDS: PANTOPRAZOLE 40 MG VIAL IV SCH (08:35)
[2016-06-26] MEDS: ASPIRIN 81 MG TAB.CHEW PO SCH (08:36)
[2016-06-26] MEDS: VANCOMYCIN 500 MG in IV D5W 100 ML IV PRN (08:59)
[2016-06-26] MEDS ORDERED: AMIKACIN 400 MG in IV D5W 100 ML IV PRN (09:00)
--- NOTE | 2016-06-26 10:20 | NUR ---
ICU/RN: PT TAKEN TO CT HEAD WITH ACLS GUIDELINES. VSS, NO DISTRESS NOTED. WILL CONTINUE CARE
[2016-06-26 11:17] LABS: BAND % (MANUAL) 2 % (0.0-5.0); LYMPHOCYTES % (MANUAL) 7 % (16-48); MONOCYTES % (MANUAL) 5 % (0-11.0); NEUTROPHILS % (MANUAL) 86 (42-76)
[2016-06-26 11:18] LABS: ANISOCYTOSIS 4+; HYPOCHROMASIA 2+; PLATELET ESTIMATE INCRE
--- NOTE | 2016-06-26 11:30 | NUR ---
ICU/RN: AMIKACIN LEVEL 13.8, HELD DOSE AFTER HD PER PHARMACY. VANCO GIVEN
[2016-06-26] MEDS: TOBRAMYCIN/DEXAMETH OPHTH DORPS 2.5 ML BOTTLE EACHEYE SCH ×4 (12:30→23:17)
--- NOTE | 2016-06-26 13:45 | NUR ---
ICU/RN: BP STABLE, LEVO OFF, WILL CONTINUE TO MONITOR AND ASSESS
--- NOTE | 2016-06-26 15:00 | NUR ---
ICU/RN: BP NOTED DROPPING, LEVO RESTARTED, ON 3 LITERS O2, NO ACUTE DISTRESS NOTED. WILL CONTINUE TO MONITOR AND ASSESS
[2016-06-26] MEDS: NOREPINEPHRINE 16 MG in IV D5W 500 ML IV PRN (17:04)
[2016-06-26] MEDS ORDERED: IV SET PRIMARY PUMP SET 1 EA INFUS.SET MC ONE (17:27)
--- NOTE | 2016-06-26 18:41 | NUR ---
ICU/RN ENDING NOTES,AM REPORT WILL BE ENDORSED TO NIGHT NURSE FOR CONTINUATION OF CARE. PT ON 3LITERS NASAL CANULA, NO DISTRESS NOTED. LOW DOSE LEVO, 2MCG INFUSING FOR BP SUPPORT. ALL NEEDS MET. SAFETY MEASURES TAKEN, BED IN LOW POSITION, SIDE RAILS UP, CALL LIGHT WITHIN REACH. WILL CONTINUE CARE.
[2016-06-26] MEDS: MICAFUNGIN SODIUM 100 MG in IV NS 0.9% 100 ML IV SCH (20:15)
[2016-06-26] MEDS ORDERED: SECONDARY IV SET 1 EA INFUS.SET MC ONE (21:35)
[2016-06-27] VITALS (65 sets, daily range): BP systolic 89–141; BP diastolic 40–71
--- NOTE | 2016-06-27 02:00 | NUR ---
PAYING TELLER-REC'D PT. ON LEVOPHED GTT. SBP'S WERE 130'S. LEVO WAS TITRATED TO 0.5MCG/MIN. 21:00 BP WAS 77/31,SO GTT.WAS TURNED BACK UP TO ONE MCG/MIN. PT. IS VERY SENSITIVE TO GTT. AT [place], PRESSURES WERE IN THE 80'S, SO LEVOPHED GTT. WAS IN - CREASED TO 2MCG/MIN. PT. STAYED SAMANTA IN THE 50'S FOR SHIFT. PT. HAS BEEN DROWSY FOR MOST PART OF SHIFT, BUT AROUSES TO TACTILE STIMULUS. PT. WAS DESATTING AT BEGINNING OF SHIFT. O2 WAS INCREASED TO 5L/NC. ANURIC. CONT.POC.
[2016-06-27] MEDS: TOBRAMYCIN/DEXAMETH OPHTH DORPS 2.5 ML BOTTLE EACHEYE SCH ×6 (03:05→22:49)
[2016-06-27] MEDS: METRONIDAZOLE 500MG/ NS 100ML 500 MG in PREMIX 1 EA IV SCH ×3 (04:47→20:43)
[2016-06-27 05:07] LABS: CALCIUM, SERUM 7.6 mg/dL (8.5-10.1); CREATININE 3.7 mg/dL (0.6-1.3); POTASSIUM 3.5 mmol/L (3.5-5.1)
--- NOTE | 2016-06-27 06:00 | NUR ---
UR COORDINATOR-PT. WAS ADM. A THOROUGH BEDBATH W/MULTIPLE DRSG CHANGES. PT. BECAME AGITATED & STARTED GRABBING RN-BIPIN & TAKING OFF TUBING & ALL THE NEW DRSG CHANGES & MEPILEX OFF. AFTER TRYING TO TALK TO PT., STAFF HAD NO CHOICE BUT TO START BILAT. SOFT WRIST RESTRAINTS. WILL ENDORSE TO DAY SHIFTRN. CONT POC.
[2016-06-27] MEDS: LEVOTHYROXINE SODIUM 25 MCG TABLET PO SCH (07:30)
--- NOTE | 2016-06-27 08:00 | NUR ---
GAS APPLIANCE INSTALLER; ASSESSMENT RECEIVED PT ON NASAL CANULA 4L. PT IS AWAKE AND ORIENTED TO SELF. PT LETHARGIC NEEDS, FREQUENT STIMULATION. EDMUND WRIST RESTRAINS ON FOR PT SAFETY, TRYING TO REACH SALESPERSON STEREO EQUIPMENT AND RIGHT PICC LINE. PT IS ANURIC WITH HD ACCESS TO LEFT UPPER ARM. POSITIVE FOR BRUIT AND THRILL. PT HAS MULTIPLE SKIN TEARS TO EDMUND ARMS. NOTED PTS NECK SHIFTS TO THE LEFT SIDE. PT C/O PAIN WHEN HEAD IS MOVED. PT ON LEVOPHED AT 2MCG/MIN, TO KEEP SPB GREATER THAN 90. NOTED PTS HR IN THE LOW 50'S. DR. MOTNGOMERY AWARE. NO ACUTE DISTRESS NOTED WILL CONTINUE TO MONITOR
[2016-06-27] MEDS: ASPIRIN 81 MG TAB.CHEW PO SCH (08:31)
--- NOTE | 2016-06-27 08:31 | NUR ---
SEISMOGRAPH CHIEF;MEDICATION UNABLE TO ADMINISTER PO MEDICATIONS DUE TO PT HIGH RISK FOR ASPIRATION. PENDING SWALLOW EVAL
[2016-06-27 08:38] LABS: HEMATOCRIT 30 % (39-51); HEMOGLOBIN 9.4 g/dL (13.5-17.5); MEAN CORPUSCULAR HEMOGLOBIN 27 PG (26.0-33.0); MEAN CORPUSCULAR HGB CONC 31 g/dl (31.0-36.0); MEAN CORPUSCULAR VOLUME 85 fL (80-96); PLATELET COUNT (AUTO) 412 /CMM (150-450); RED BLOOD CELL COUNT(AUTO) 3.54 MIL/uL (4.5-6.0)
[2016-06-27 08:51] LABS: WHITE BLOOD COUNT (AUTO) 43.1 K/uL (4.3-11.0)
[2016-06-27] MEDS: PANTOPRAZOLE 40 MG VIAL IV SCH (09:03)
[2016-06-27 09:53] LABS: BAND % (MANUAL) 3 % (0.0-5.0); LYMPHOCYTES % (MANUAL) 3 % (16-48); MONOCYTES % (MANUAL) 1 % (0-11.0); MYELOCYTES % 1 % (0-0); NEUTROPHILS % (MANUAL) 92 (42-76)
[2016-06-27 09:54] LABS: ANISOCYTOSIS 2+; HYPOCHROMASIA 2+; OVALOCYTES 1+; PLATELET ESTIMATE INCREASED
--- NOTE | 2016-06-27 10:33 | NUR ---
MAINTENANCE TECH; GI NGTUBE INSERTED TO LEFT NARE, ORDERED BY DR. MARQUEZ. POSITIVE FOR AUSCULTATION AND ASPIRATION. VERIFIED PLACEMENT WITH WILLOW ALAS. WILL RESUME PREVIOUS TUBE FEEDINGS.
[2016-06-27] MEDS: RENAL NOVASOURCE 1,000 ML BOTTLE GT PRN (10:53)
--- NOTE | 2016-06-27 12:02 | NUR ---
RT PER DR MALONEY DAILY ABG NOT NECESSARY TODAY, PATIENT STABLE WITH NO DISTRESS OR SOB
[2016-06-27] MEDS: NOREPINEPHRINE 16 MG in IV D5W 500 ML IV PRN (17:01)
[2016-06-27] MEDS: VANCOMYCIN 500 MG in IV D5W 100 ML IV PRN (18:03)
[2016-06-27] MEDS: MICAFUNGIN SODIUM 100 MG in IV NS 0.9% 100 ML IV SCH (20:42)
[2016-06-28] VITALS (50 sets, daily range): BP systolic 96–129; BP diastolic 40–62
[2016-06-28] MEDS: TOBRAMYCIN/DEXAMETH OPHTH DORPS 2.5 ML BOTTLE EACHEYE SCH ×6 (03:53→22:48)
[2016-06-28] MEDS: METRONIDAZOLE 500MG/ NS 100ML 500 MG in PREMIX 1 EA IV SCH ×3 (04:35→21:12)
[2016-06-28 04:52] LABS: HEMATOCRIT 28 % (39-51); HEMOGLOBIN 8.9 g/dL (13.5-17.5); MEAN CORPUSCULAR HEMOGLOBIN 27 PG (26.0-33.0); MEAN CORPUSCULAR HGB CONC 32 g/dl (31.0-36.0); MEAN CORPUSCULAR VOLUME 85 fL (80-96); PLATELET COUNT (AUTO) 430 /CMM (150-450); RDW COEFFICIENT OF VARIATION 27.5 (11.5-15.0); RED BLOOD CELL COUNT(AUTO) 3.32 MIL/uL (4.5-6.0)
[2016-06-28 05:02] LABS: CALCIUM, SERUM 7.3 mg/dL (8.5-10.1); CREATININE 4.2 mg/dL (0.6-1.3); POTASSIUM 3.3 mmol/L (3.5-5.1)
[2016-06-28 05:03] LABS: WHITE BLOOD COUNT (AUTO) 34.8 K/uL (4.3-11.0)
[2016-06-28 05:50] LABS: ANISOCYTOSIS 4+; HYPOCHROMASIA 3+; PLATELET ESTIMATE INCREASED
--- NOTE | 2016-06-28 06:00 | NUR ---
ELECTRICAL PROSPECTING ENGINEER - REC'D PT. ON O2/4L/NC-PT.NEEDED DEEP NASAL SXING BY RT/GOLDBEATER. PT. TRIES TO PULL ON TUBING W/TACTILE STIMULUS OTHERWISE PT. REMAINED DROWSY. PT.IS ON LEVOPHED GTT AT 6MCG/MIN. I WAS ABLE TO TITRATE DOWN TO 5MCG/MIN. SBP'S STAY AT LOW 100'S. HR IS SB/50'S. PT.HAS NOVASOURCE INFUSING AT 40CC/HR. TOLERATING FAIR. 5-30CC/RESIDUALS. RUE TL PICC LINE-ALL PORTS PATENT TO FLUSH. LUE VERY EDEMATOUS AT +4/PITTING. ANURIC/HD PT. +BRUIT/+THRILL TO LUE FISTULA. MAJOR DRSG CHANGES (12 SKIN PICS TAKEN & DOCUMENTED IN PT'S CHART LAST NIGHT). LAB PHONED RE: WBC AT 34.8/CRITICAL VALUE. DOCUMENTED & TRENDING DOWN. AFEBRILE. REPORT ENDORSED TO MCKENZIE Menendez CONT. POC.
--- NOTE | 2016-06-28 06:15 | NUR ---
SIGN BUILDER - NOTE THAT PT'S CAME AT 23:00 LAST NIGHT W/GRANDKIDS. STATUS UPDATE GIVEN. PT.WAS ADM. 2 BEDBATHS DUE TO [employer]LIQUID STOOLING. ORAL, BERNARD, SKIN/WOUND CARE ADM. DOCUMENTED. CONT. POC.
--- NOTE | 2016-06-28 07:15 | NUR ---
EMERGENCY PLANNER NOTES RECEIVED PATIENT AWAKE , OPENS EYES , LETHARGIC , NOT IN ACUTE DISTRESS , RESPIRATIONS EVEN AND UNLABORED , SPO2 OF 100% VIA 4LPM NC , SB 59 ON BEDSIDE MONITOR , L NARE NGT IN PLACED VERIFIED PLACEMENT VIA AUSCULTATION NOTED WITH GURGLING SOUND AROUND STOMACH AREA , TUBE FEEDING OF NOVASOURCE @ 40ML/HR INFUSING WELL WITH 10ML RESIDUALS NOTED , ON KCI MATTRESS , JESSICA PICC LINE PATENT AND INTACT WITH LEVOPHED @ 5MCG/MIN , NS @ TKO INFUSING WELL , LIDYA AV SHUNT WITH BRUIT AND THRILL UPON PALPATION , ALL NEED ATTENDED , BED ON LOW AND LOCKED POSITION , SIDE RAILS X2 , HOB @ 35 , WILL CONTINUE TO MONITOR .
[2016-06-28] MEDS: PANTOPRAZOLE 40 MG VIAL IV SCH (08:33)
[2016-06-28] MEDS: LEVOTHYROXINE SODIUM 25 MCG TABLET PO SCH (08:33)
[2016-06-28] MEDS: ASPIRIN 81 MG TAB.CHEW PO SCH (08:33)
--- NOTE | 2016-06-28 09:02 | NUR ---
FOOD TECHNOLOGIST NOTES DR OLIVERA AT BEDSIDE , DISCUSSED AM LABS , CHEST XRAY , PER MD NO REPLACEMENT FOR K OF 3.3 , ON LEVOPHED @ 6MCGMIM TO KEEP SBP 100MMHG , PT HAS LEFT ARM SWELLING VERIFIED IF SHE WANTS TO ORDER VENOUS DOPPLER TO R/O DVT , AWARE ,
--- NOTE | 2016-06-28 09:44 | NUR ---
COLLEGE OR UNIVERSITY BUSINESS MANAGER NOTES DR MARQUEZ AT BEDSIDE , DISCUSSED AM LABS , CHEST XRAY , ON 4LPM NC SPO2 OF 98% , PT IS LETHARGIC BUT MORE AWAKE , ABLE TO FOLLOWS COMMANDS , NOTED WITH LIDYA SWELLING PENDING US DOPPLER STUDIES , ON LEVOPHED @ 6MGC/MIN TO KEEP SBP ABOVE 100 , AFEBRILE , PENDING SWALLOW MD JOSE ANTONIO AWARE
[2016-06-28] MEDS ORDERED: POTASSIUM CHLORIDE 20 MEQ POWDER PACKET GT ONE (10:00)
--- NOTE | 2016-06-28 10:13 | NUR ---
DIALYSIS CHIEF EQUIPMENT TECHNICIAN NOTES SPEECH SENIOR CLERK AT BEDSIDE FOR SWALLOW EVALUATION , PT FAILED , NOTED WITH SIGNS OF ASPIRATIONS , COUGHING, WILL CONTINUE TO MONITOR
[2016-06-28] MEDS ORDERED: IV NS 0.9% 250 ML IV ONE ×2 (14:10→22:37)
--- NOTE | 2016-06-28 14:53 | NUR ---
BARREL LOADER AND CLEANER NOTES PATIENT NOTED TO BE MORE AWAKE , ALERT X2 , ORIENTED TO PERSON , RE ORIENT PATIENT TO DATE , PLACE AND TIME , DENIES SOB AND DISCOMFORT , WILL CONTINUE TO MONITOR
[2016-06-28] MEDS: NOREPINEPHRINE 16 MG in IV D5W 500 ML IV PRN (15:00)
[2016-06-28] MEDS: RENAL NOVASOURCE 1,000 ML BOTTLE GT PRN (15:00)
[2016-06-28 15:51] LABS: LYMPHOCYTES % (MANUAL) 4 % (16-48); MONOCYTES % (MANUAL) 9 % (0-11.0); NEUTROPHILS % (MANUAL) 87 (42-76)
--- NOTE | 2016-06-28 20:00 | NUR ---
CHILDHOOD DEVELOPMENT TEACHER LEFT EAR DTI NOTED , PICTURE TAKEN. SACRAL REDNESS WITH OPEN SKIN (PICTURE TAKEN YESTERDAY) . WOUND CARE CONSULTED.
[2016-06-28] MEDS: MICAFUNGIN SODIUM 100 MG in IV NS 0.9% 100 ML IV SCH (20:07)
--- NOTE | 2016-06-28 22:00 | NUR ---
ICU NR PT O2 SAT 89 % . HOB ELEVATED. PT DEEP SUCTIONED , LARGE AMOUNT OF YELLOW SPUTUM NOTED. O2 SAT INCREASED TO 100 % . WILL CONT TO MONITOR
--- NOTE | 2016-06-28 23:10 | NUR ---
LABORATORY MILLER PT HAD MEDIUM SIZE BROWN SOFT BM. BED BATH GIVEN AND ALL LINENS CHANGED. PT DID NOT TOLERATE TURNING WELL. O2 SAT DECREASED TO 88% WHILE TURNING BUT PTS O2 SAT QUICKLY INCREASED TO 99% AFTER BATH WAS FINISHED. HOB ELEVATED AND SUCTIONED PT VIA ETT. Addendum: 06/28/16 at 2317 by GERMAIN MOSES RN NOTE MEANT TO BE FOR 1999 ON 06/28/16
--- NOTE | 2016-06-28 23:32 | NUR ---
DEPUTY K 9 :NON-ADMINISTERED NS 250ML FOR TKO.
[2016-06-29] VITALS (44 sets, daily range): BP systolic 99–148; BP diastolic 43–77
[2016-06-29] MEDS: TOBRAMYCIN/DEXAMETH OPHTH DORPS 2.5 ML BOTTLE EACHEYE SCH ×6 (02:50→23:06)
--- NOTE | 2016-06-29 03:11 | NUR ---
DATACAP DEVELOPER PT IS COUGHING AND UNABLE TO EXPECTORATE SPUTUM . PT IS VERY CONGESTED. PT DEEP SUCTIONED. HOB ELEVATED AND ORAL CARE GIVEN.
[2016-06-29] MEDS: METRONIDAZOLE 500MG/ NS 100ML 500 MG in PREMIX 1 EA IV SCH (04:05)
[2016-06-29 04:31] LABS: BASOPHILS % (AUTO) 0.1 % (0.0-2.0); EOSINOPHILS # (AUTO) 0.1 /CMM (0.0-0.7); EOSINOPHILS % (AUTO) 0.3 % (0.0-6.0); HEMATOCRIT 26 % (39-51); HEMOGLOBIN 8.1 g/dL (13.5-17.5); LYMPHOCYTES # (AUTO) 2.4 /CMM (0.8-4.8); LYMPHOCYTES % (AUTO) 8.4 % (20.0-44.0); MEAN CORPUSCULAR HEMOGLOBIN 27 PG (26.0-33.0); MEAN CORPUSCULAR HGB CONC 32 g/dl (31.0-36.0); MEAN CORPUSCULAR VOLUME 86 fL (80-96); MONOCYTES # (AUTO) 0.1 /CMM (0.1-1.30); MONOCYTES % (AUTO) 0.4 % (2.0-12.0); NEUTROPHILS # (AUTO) 25.9 /CMM (1.8-8.9); NEUTROPHILS % (AUTO) 90.8 % (43.0-81.0); PLATELET COUNT (AUTO) 382 /CMM (150-450); RDW COEFFICIENT OF VARIATION 29.4 (11.5-15.0); WHITE BLOOD COUNT (AUTO) 28.5 K/uL (4.3-11.0)
[2016-06-29 04:49] LABS: CALCIUM, SERUM 7.5 mg/dL (8.5-10.1); CREATININE 4.5 mg/dL (0.6-1.3); PHOSPHORUS 2.8 mg/dL (2.5-4.9); POTASSIUM 3.6 mmol/L (3.5-5.1)
[2016-06-29 05:04] LABS: BAND % (MANUAL) 1 % (0.0-5.0); LYMPHOCYTES % (MANUAL) 7 % (16-48); MONOCYTES % (MANUAL) 6 % (0-11.0); NEUTROPHILS % (MANUAL) 86 (42-76)
[2016-06-29 05:05] LABS: ANISOCYTOSIS 1+; HYPOCHROMASIA 1+; PLATELET ESTIMATE ADEQUATE
[2016-06-29 05:06] LABS: OVALOCYTES 1+; TEAR DROP CELLS 1+
--- NOTE | 2016-06-29 07:05 | NUR ---
DEMOLITION CRANE OPERATOR NOTES RECEIVED PATIENT AWAKE ,ALERT X2 , LETHARGIC , NOT IN ACUTE DISTRESS , RESPIRATIONS EVEN AND UNLABORED , SPO2 OF 100% VIA 2LPM NC , SB 57 ON BEDSIDE MONITOR , L NARE NGT IN PLACED VERIFIED PLACEMENT VIA AUSCULTATION NOTED WITH GURGLING SOUND AROUND STOMACH AREA , TUBE FEEDING OF NOVASOURCE @ 40ML/HR INFUSING WELL NO RESIDUALS NOTED , ON KCI MATTRESS , JESSICA PICC LINE PATENT AND INTACT WITH NS @ TKO INFUSING WELL , LIDYA AV SHUNT WITH BRUIT AND THRILL UPON PALPATION , ALL NEED ATTENDED , BED ON LOW AND LOCKED POSITION , SIDE RAILS X2 , HOB @ 35 , WILL CONTINUE TO MONITOR .
--- NOTE | 2016-06-29 07:54 | NUR ---
WOUND CARE CONSULT PATIENT SEEN AND SKIN INTEGRITY ASSESSMENT DONE. PLEASE SEE HIGH LIFT DRIVER ASSESSMENT IN [facility] FOR TODAY ALONG WITH ALL RECOMMENDATIONS. PATIENT PRESENTS WITH DTI TO SACRAL AREA NOW IN EVOLUTION WITH PARTIAL THICKNESS AREAS OF SKIN BREAKDOWN. THE DTI WAS POA AND MAY BECOME FULL THICKNESS ONCE FULLY EVOLVED. PATIENT ALSO PRESENT WITH NEW AREA OF SKIN BREAKDOWN TO THE LEFT OUTER EAR, DTI ALSO IN EVOLUTION PARTIAL THICKNESS. TREATMENT PLANS DISCUSSED WITH MD AND MD IN AGREEMENT. ALL SKIN MANAGEMENT AND PREVENTION MEASURES NOTED TO BE IN PLACE AT THE TIME OF THE SKIN BREAKDOWN. PATIENT NOTED TO HAVE MULTIPLE CO-MORBIDITIES. ON 1ST STEP LOW AIRLOSS MATTRESS, CONTINUE TURNING/REPOSITIONING AND BILATERAL HEEL FLOATING. CONTINUE ALL PREVENTION MEASURES PER CURRENT PLAN OF CARE. ALL DISCUSSED WITH NURSING STAFF AT THE BEDSIDE. Addendum: 06/29/16 at 0758 by KARENA BRASWELL [id number] Amended: Links added.
[2016-06-29] MEDS ORDERED: HYDROGEL DRESSING 90 GM TUBE TP PRN (08:00)
[2016-06-29] MEDS: ASPIRIN 81 MG TAB.CHEW PO SCH (08:27)
[2016-06-29] MEDS: LEVOTHYROXINE SODIUM 25 MCG TABLET PO SCH (08:27)
[2016-06-29] MEDS: PANTOPRAZOLE 40 MG VIAL IV SCH (08:27)
[2016-06-29] MEDS: HYDROGEL DRESSING 90 GM TUBE TP SCH (08:27)
[2016-06-29] MEDS: Z GUARD REMEDY 2 OZ OINT TP PRN (08:28)
[2016-06-29] MEDS ORDERED: EPOETIN ALFA (10,000 UNIT) 10,000 UNIT/ML VIAL SQ ONE (09:30)
--- NOTE | 2016-06-29 09:30 | NUR ---
OPERATIONS INTELLIGENCE NOTES DR MARTINEZ SEEN AND EVALUATED THE PT , DISCUSSED AM LABS , CHEST XRAY , PENDING ABG RESULT , OFF LEVOPHED SINCE 20:00 , BP STABLE , AFEBRILE , NO DISTRESS, SPO2 OF 100% VIA 2LPM NC TOLERATING WELL , NEGATIVE LUE US DOPPLER , AWAKE BUT STILL DROWSY AND LETHARGIC, PENDING HD , MD AWARE
--- NOTE | 2016-06-29 10:12 | NUR ---
CUSTOMER ASSOCIATE NOTES DR MARQUEZ AT BEDSIDE , DISCUSSED PT AM LABS , PT STABLE , OFF PRESSORS SINCE 1999 , BP OF 108/55 , AFEBRILE , ON 2LPM NC SPO2 OF 100% NO S/S OF DISTRESS , NOTED WITH MINIMAL URINE OUTPUT IN THE DIAPER , TOLERATING NGT FEEDING , PENDING SWALLOW EVALUATION , MD AWARE .
[2016-06-29] MEDS: NEOMY SULF/BACITRAC ZN/POLY 15 GM TUBE TP SCH (10:16)
--- NOTE | 2016-06-29 11:08 | NUR ---
BIG DATA LEAD NOTES DR OLIVERA AT BEDSIDE , DISCUSSED AM LABS , OFF LEVOPHED SINCE 1999 , AFEBRILE , NOTIFIED PT IS PRODUCING MINIMAL URINE OUTPUT IN DIAPER , FAMILY IS CONCERNED REGARDING EPOGEN PT IS HAVING NAUSEA AND VOMITING WHEN RECEIVING IT , DISCUSSED THE REACTION OF EPOGEN TO , PENDING HD WITH 10,000U OF EPOGEN , AWARE , NO NEW ORDERS
--- NOTE | 2016-06-29 11:15 | NUR ---
GRADUATE ASSISTANT NOTES HD STARED , PT STABLE AT THIS TIME , NO DISTRESS , BP OF 100/49 , AFEBRILE , WILL CONTINUE TO MONITOR
[2016-06-29 11:17] LABS: ABG BASE EXCESS -2.3 mmol/L; ABG OXYGEN SATURATION 96.6 % (92.0-98.5); ABG PCO2 41.6 mmHg (35.0-45.0); ABG PO2 98.4 mmHg (75.0-100.0); ABG TOTAL HEMOGLOBIN 8.4 G/dL (13.5-18.0); AaDO2 52.2 mmHg; COHb 1.9 % (0.5-1.5); O2Hb 93.8 % (94.0-97.0); SITE, ABG Right Radial; VENT MODE, BG NASAL CANNULA
--- NOTE | 2016-06-29 11:20 | NUR ---
RESTAURANT LINE SERVER NOTES EPOGEN 10,000 U GIVEN WITH ONGOING HEMODIALYSIS BY HD NURSE ,
[2016-06-29] MEDS ORDERED: ALBUMIN 25% 25 GM in PREMIX 1 EA IV PRN (12:30)
--- NOTE | 2016-06-29 12:31 | NUR ---
TRUST MANAGER ASSISTANT NOTES AMIKACIN THROUGH OF 15.4 AND VANCOMYCIN THROUGH OF 22 , PER PHARMACY THE HOLD DOSE POST HD
--- NOTE | 2016-06-29 13:58 | NUR ---
TAP GRINDER NOTES PT STABLE POST HD , TOLERATED WELL , NO DISTRESS , BP OF 118/50 , 2L OUT , WILL CONTINUE TO MONITOR
[2016-06-29] MEDS: RENAL NOVASOURCE 1,000 ML BOTTLE GT PRN (16:37)
--- NOTE | 2016-06-29 18:55 | NUR ---
SENIOR PARTNER NOTES PATIENT STABLE AT THIS TIME , NOT IN ACUTE DISTRESS , RESPIRATIONS EVEN AND UNLABORED , SPO2 OF 100% VIA 2LPM NC , SR 72 ON BEDSIDE MONITOR , L NARE NGT IN PLACED WITH TUBE FEEDING OF NOVASOURCE @ 40ML/HR INFUSING WELL NO RESIDUALS NOTED , ON KCI MATTRESS , JESSICA PICC LINE PATENT AND INTACT WITH NS @ TKO INFUSING WELL , LIDYA AV SHUNT WITH BRUIT AND THRILL UPON PALPATION , ALL NEED ATTENDED , BED ON LOW AND LOCKED POSITION , SIDE RAILS X2 , HOB @ 35 , REPORT GIVEN TO GERMAIN FOR CONTINUITY OF CARE
[2016-06-29] MEDS ORDERED: IV NS 0.9% 250 ML IV ONE (21:20)
--- NOTE | 2016-06-29 21:44 | NUR ---
TIME STUDY ANALYST NON ADMINISTERED 250ML OF NS FOR TKO
[2016-06-29] MEDS: MORPHINE SULFATE INJ 2 MG/ML DISP.SYRIN IV PRN (23:09)
[2016-06-30] VITALS (24 sets, daily range): BP systolic 105–137; BP diastolic 46–67
--- NOTE | 2016-06-30 | NUR ---
GAS COMPRESSOR OPERATOR BED BATH GIVEN AFTER BM. PT TOLERATED WELL. PT ABLE TO ASSIST WITH TURNING AND HOLDING ONTO SIDE RAIL. NO SOB NOTED. WITH ACTIVITY.
--- NOTE | 2016-06-30 01:00 | NUR ---
COUNTER SERVER PT IS CONGESTED AND NEEDS DEEP NASOTRACHEAL SUCTIONING TO HELP CLEAR AIRWAY FROM THICK SECRETIONS .HOB ELEVATED. PREOXYGENATED AND SUCTIONED PT. PT TOLERATED PROCEDURE WELL. MODERATE AMOUNTS OF PINK TINGED SPUTUM NOTED.
[2016-06-30] MEDS: TOBRAMYCIN/DEXAMETH OPHTH DORPS 2.5 ML BOTTLE EACHEYE SCH ×6 (04:00→23:26)
[2016-06-30 04:53] LABS: BASOPHILS # (AUTO) 0.2 /CMM (0.0-0.2); BASOPHILS % (AUTO) 0.5 % (0.0-2.0); HEMATOCRIT 27 % (39-51); HEMOGLOBIN 8.3 g/dL (13.5-17.5); LYMPHOCYTES # (AUTO) 1.8 /CMM (0.8-4.8); LYMPHOCYTES % (AUTO) 5.7 % (20.0-44.0); MEAN CORPUSCULAR HEMOGLOBIN 27 PG (26.0-33.0); MEAN CORPUSCULAR HGB CONC 31 g/dl (31.0-36.0); MEAN CORPUSCULAR VOLUME 86 fL (80-96); MONOCYTES # (AUTO) 0.3 /CMM (0.1-1.30); MONOCYTES % (AUTO) 0.9 % (2.0-12.0); NEUTROPHILS # (AUTO) 29.6 /CMM (1.8-8.9); NEUTROPHILS % (AUTO) 92.9 % (43.0-81.0); PLATELET COUNT (AUTO) 424 /CMM (150-450); RDW COEFFICIENT OF VARIATION 28.3 (11.5-15.0); RED BLOOD CELL COUNT(AUTO) 3.11 MIL/uL (4.5-6.0)
[2016-06-30 05:00] LABS: WHITE BLOOD COUNT (AUTO) 31.9 K/uL (4.3-11.0)
[2016-06-30 05:12] LABS: CALCIUM, SERUM 7.8 mg/dL (8.5-10.1); CREATININE 3.5 mg/dL (0.6-1.3); POTASSIUM 3.4 mmol/L (3.5-5.1)
--- NOTE | 2016-06-30 05:47 | NUR ---
DYER ASSISTANT PT IS CONGESTED AND NEEDS DEEP NASOTRACHEAL SUCTIONING TO CLEAR AIRWAY .HOB ELEVATED. PT TOLERATED PROCEDURE WELL.MODERATE AMOUNTS OF PINK TINGED SPUTUM NOTED.
[2016-06-30 05:54] LABS: BAND % (MANUAL) 5 % (0.0-5.0); EOSINOPHILS % (MANUAL) 2 % (0-4); LYMPHOCYTES % (MANUAL) 3 % (16-48); METAMYELOCYTES % 4 % (0-0); MYELOCYTES % 2 % (0-0); NEUTROPHILS % (MANUAL) 84 (42-76)
[2016-06-30 05:55] LABS: ANISOCYTOSIS 4+; HYPOCHROMASIA 2+; PLATELET ESTIMATE INCREASED
[2016-06-30] MEDS: ASPIRIN 81 MG TAB.CHEW PO SCH (08:12)
[2016-06-30] MEDS: NEOMY SULF/BACITRAC ZN/POLY 15 GM TUBE TP SCH (08:12)
[2016-06-30] MEDS: PANTOPRAZOLE 40 MG VIAL IV SCH (08:12)
[2016-06-30] MEDS: LEVOTHYROXINE SODIUM 25 MCG TABLET PO SCH (08:12)
[2016-06-30] MEDS: HYDROGEL DRESSING 90 GM TUBE TP SCH (08:12)
--- NOTE | 2016-06-30 08:34 | NUR ---
DEEP SUCTIONED PT. ASSISTED RT WITH DEEP SUCTIONING TO CLEAR AIRWAY, ONLY SMALL AMOUNT ON THICK PINK/YELLOW SECRETIONS, BUT AIRWAY SOUNDS MORE PATENT. PT UNABLE TO PRODUCE DEEP PRODUCTIVE COUGH TO CLEAR AIRWAY.
[2016-06-30 11:25] LABS: HEPATITIS B CORE AB, IgM Negative (Negative); HEPATITIS B CORE AB, TOTAL Negative (Negative); HEPATITIS B SURFACE AB Non Reactive (.); HEPATITIS C VIRUS AB <0.1 s/co ratio (0.0-0.9)
[2016-06-30] MEDS: MORPHINE SULFATE INJ 2 MG/ML DISP.SYRIN IV PRN (13:04)
--- NOTE | 2016-06-30 13:22 | NUR ---
RT IN FOR DEEP SUCTIONING. MODERATE SECRETIONS PINK TINGED. AIRWAY MORE CLEAR AFTERWARDS.
--- NOTE | 2016-06-30 14:16 | NUR ---
DR. MARQUEZ ON THE UNIT TO SPEAK WITH THE PT'S AND DAUGHTER. DISCUSSES EXTENSIVELY ABOUT OPTIONS AND PLAN OF CARE REGARDING POSSIBLE GTUBE PLACEMENT AND ASSEMBLER LAY UPS PLAN OF CARE REGARDING CODE STATUS. THE FAMILY IS CURRENTLY DISCUSSING, NO FULL DECISION AT THIS TIME.
[2016-06-30] MEDS: MEROPENEM 500 MG in IV NS 0.9% 50 ML IV SCH (19:56)
--- NOTE | 2016-06-30 20:44 | NUR ---
CHOCOLATE FINISHER OPERATOR:RECEIVED PT A/O X 1-2, ON 2 L NCSATURATING 98 Addendum: 06/30/16 at 2047 by WENCESLAO CARLIN RN TURN AND REPOSITIONED FOR COMFORT. ALL NEEDS ATTENDED. LUNGS SOUND ARE NOT CLEAR, POSITIVE FOR WHEEZING AND CONGESTION, NEEDS FREQUENT SUCTIONING TO CLEAR THE AIRWAY. NGT FEEDING RUNNING WELL. V/S STABLE. ONGOING MONITORING.
[2016-07-01] VITALS (26 sets, daily range): BP systolic 106–142; BP diastolic 39–76
[2016-07-01] MEDS ORDERED: IV NS 0.9% 250 ML IV ONE (02:36)
[2016-07-01] MEDS ORDERED: IV SET PRIMARY PUMP SET 1 EA INFUS.SET MC ONE (02:36)
[2016-07-01] MEDS: IV NS 0.9% 250 ML IV PRN (02:44)
[2016-07-01] MEDS: TOBRAMYCIN/DEXAMETH OPHTH DORPS 2.5 ML BOTTLE EACHEYE SCH ×6 (02:45→23:34)
[2016-07-01 05:17] LABS: BASOPHILS # (AUTO) 0.1 /CMM (0.0-0.2); BASOPHILS % (AUTO) 0.4 % (0.0-2.0); HEMATOCRIT 27 % (39-51); HEMOGLOBIN 8.3 g/dL (13.5-17.5); LYMPHOCYTES # (AUTO) 1.9 /CMM (0.8-4.8); LYMPHOCYTES % (AUTO) 4.9 % (20.0-44.0); MEAN CORPUSCULAR HEMOGLOBIN 27 PG (26.0-33.0); MEAN CORPUSCULAR HGB CONC 31 g/dl (31.0-36.0); MEAN CORPUSCULAR VOLUME 87 fL (80-96); MONOCYTES # (AUTO) 0.3 /CMM (0.1-1.30); MONOCYTES % (AUTO) 0.9 % (2.0-12.0); NEUTROPHILS # (AUTO) 35.8 /CMM (1.8-8.9); NEUTROPHILS % (AUTO) 93.8 % (43.0-81.0); PLATELET COUNT (AUTO) 483 /CMM (150-450); RDW COEFFICIENT OF VARIATION 27.9 (11.5-15.0); RED BLOOD CELL COUNT(AUTO) 3.07 MIL/uL (4.5-6.0)
[2016-07-01 05:21] LABS: WHITE BLOOD COUNT (AUTO) 38.2 K/uL (4.3-11.0)
[2016-07-01 05:35] LABS: MAGNESIUM 2.1 mg/dL (1.8-2.4); PHOSPHORUS 2.5 mg/dL (2.5-4.9); POTASSIUM 3.6 mmol/L (3.5-5.1)
[2016-07-01 05:58] LABS: BAND % (MANUAL) 3 % (0.0-5.0); LYMPHOCYTES % (MANUAL) 4 % (16-48); METAMYELOCYTES % 1 % (0-0); MONOCYTES % (MANUAL) 3 % (0-11.0); NEUTROPHILS % (MANUAL) 89 (42-76); PLATELET ESTIMATE INCREASED
[2016-07-01 05:59] LABS: ANISOCYTOSIS 3+; HYPOCHROMASIA 1+
--- NOTE | 2016-07-01 07:15 | NUR ---
RN INITIAL NOTES PT IN BED, A/O X1, RESTLESS, FOLLOWS COMMANDS AT TIMES, HOB ELEVATED 35 DEGREES, NC 2L, NGT LEFT NARE RUNNING NOVASOURCE @ 40 CC/HR, TOLERATING WELL, NO RESIDUAL. LAV FISTULA, RIGHT PICC TKO, CDI, NO SIGNS OF INFECTION/INFILTRATION. NO RESTRAINTS. PT HAS SACRAL STAGE 2, DRESSINGS CDI, AND BUE BRUISES/DISCOLORATION/SCAB. PT IS CONGESTED WILL SUCTION. CALL LIGHT WITHIN EASY REACH, SAFETY MEASURES MAINTAINED, WILL CONTINUE TO MONITOR AND FOLLOW MD ORDERS. PT IN OVERALL STABLE CONDITION.
[2016-07-01] MEDS ORDERED: DOPamine 400 MG in IV D5W 250 ML IV PRN (08:30)
[2016-07-01] MEDS: PANTOPRAZOLE 40 MG VIAL IV SCH (08:46)
[2016-07-01] MEDS: ASPIRIN 81 MG TAB.CHEW PO SCH (08:46)
[2016-07-01] MEDS: LEVOTHYROXINE SODIUM 25 MCG TABLET PO SCH (08:46)
[2016-07-01] MEDS: Z GUARD REMEDY 2 OZ OINT TP PRN (08:47)
[2016-07-01] MEDS: NEOMY SULF/BACITRAC ZN/POLY 15 GM TUBE TP SCH (08:48)
[2016-07-01] MEDS: HYDROGEL DRESSING 90 GM TUBE TP SCH (08:48)
[2016-07-01] MEDS ORDERED: EPOETIN ALFA (10,000 UNIT) 10,000 UNIT/ML VIAL SQ ONE (09:00)
--- NOTE | 2016-07-01 09:18 | NUR ---
RN NOTES SEEN BY DR. MARTINEZ, CONTINUE WITH CARE. NO NEW ORDERS.
--- NOTE | 2016-07-01 15:13 | NUR ---
WOUND CARE FOLLOW UP: PT SEEN FOR SKIN ASSESSMENT AND NOTED TO HAVE DEEP TISSUE INJURY IN EVOLUTION TO SACRAL AREA WHICH IS OPEN AT PARTIAL THICKNESS AND WAS PRESENT ON ADMISSION. LEFT EAR HAS DEEP TISSUE INJURY WHICH IS CRUSTED AT THIS TIME, NO DRAINAGE NOTED. LEFT ARM SWELLING NOTED WITH BRUISING AND DRY ABRASIONS. PT IS INCONTINENT, IMMOBILE WITH MULTIPLE CO- MORBIDITIES. ALL SKIN PROTECTION AND WOUND RECOMMENDATIONS DISCUSSED WITH NURSING STAFF. PT ON FIRST STEP MATTRESS. IN AGREEMENT WITH PLAN OF CARE. Addendum: 07/01/16 at 1516 by WALE BROWNING WNDNU Amended: Links added.
--- NOTE | 2016-07-01 15:20 | NUR ---
RN NOTES PER MD, PT WILL RECEIVE LAST HD TODAY, STARTING TOMORROW MORNING PT WILL BE HOSPICE AND WILL BE EVALUATED WELL. PTS VERBALIZES UNDERSTANDING.
--- NOTE | 2016-07-01 15:58 | NUR ---
had a discussion with family regarding plan of care. Family requesting hospice care [facility]. Spoke with Olga @ [facility] hospice care [phone],faxed hospice prashant griffin. [facility] hospice nurse will contact young to set up a meeting. Addendum: 07/01/16 at 1559 by BRANDI ESPANA RN Amended: Links added.
--- NOTE | 2016-07-01 16:54 | NUR ---
DAILY ABG STOPPED PER 'S ORDER.
[2016-07-01] MEDS: RENAL NOVASOURCE 1,000 ML BOTTLE GT PRN (18:14)
--- NOTE | 2016-07-01 19:40 | NUR ---
ICU/DITCH TENDER RECEIVED REPORT FROM DAY NURSE, PT'S SATURATION IS 85% WITH GOOD WAVE FOR. PT WAS SUCTIONED DEEP SUCTIONED, X2 THEN GIVEN ORAL CARE. PT IS A MOUTH BREATHER, WITH THICK BROWNISH GREEN CRUST ON LIPS AND TONGUE. SATURATION IS NOW 95%. WILL MONITOR THIS. PT TURNED AND REPOSITIONED FOR COMFORT AND CARE.
[2016-07-01] MEDS: MEROPENEM 500 MG in IV NS 0.9% 50 ML IV SCH (19:57)
--- NOTE | 2016-07-01 23:40 | NUR ---
ICU/[facility] AT BEDSIDE, SOME CONGESTION NOTED AT THIS TIME. SATURATION FELL INTO THE 80'S, PT REQUIRED AT THIS TIME SOME SUCTIONING, THROUGH NASAL INTO THROAT. SATURATION CAME UP TO 95-97%. WILL MONITOR THIS PT. PT WAS TURNED AND REPOSITIONED FOR COMFORT AND CARE.
[2016-07-02] VITALS (17 sets, daily range): BP systolic 65–155; BP diastolic 30–75
--- NOTE | 2016-07-02 02:35 | NUR ---
ICU/COTTON SEED CULLER PT'S SATURATION FELL INTO THE 60'S WITH GOOD WAVE LENGTH. PT WAS SUCTIONED X2, HOWEVER COULD NOT GET SATURATION UP PAST 70'S. RESPIRATORY CALLED AND PT WAS SUCTIONED A FEW MORE TIMED, SATURATION RETUNED TO 100% ON 2 LITERS. PT WAS TURNED AND REPOSITIONED FOR COMFORT AND CARE.
--- NOTE | 2016-07-02 03:18 | NUR ---
ICU/STAFFING RECRUITER PT WAS GIVEN BATH WITH ORAL CARE AT THIS TIME. PT TOLERATED THIS WELL ON CURRENT O2 SETTINGS. PT WAS TURNED AND [id number] FOR COMFORT AND CARE. PT APPEARS TO BE COMFORTABLE NO ACUTE RESPIRATORY DISTRESS SEEN. WILL CONTINUE TO MONITOR THIS PT.
[2016-07-02] MEDS: TOBRAMYCIN/DEXAMETH OPHTH DORPS 2.5 ML BOTTLE EACHEYE SCH ×2 (03:33→06:51)
[2016-07-02 05:40] LABS: CREATININE 3.5 mg/dL (0.6-1.3); POTASSIUM 3.9 mmol/L (3.5-5.1)
--- NOTE | 2016-07-02 05:55 | NUR ---
ICU/OPERATING ROOM TECHNOLOGIST AM LABS DRAWN, PT TOLERATED THIS WELL.
[2016-07-02] MEDS: LEVOTHYROXINE SODIUM 25 MCG TABLET PO SCH (06:54)
[2016-07-02] MEDS: IV NS 0.9% 250 ML IV PRN (07:21)
--- NOTE | 2016-07-02 08:00 | NUR ---
COMMISSARY OFFICER; ASSESSMENT RECEIVED PT AWAKE AND ORIENTED TO SELF. PT IS LETHARGIC BUT AROUSABLE ABLE TO FOLLOW SIMPLE COMMANDS. NG TUBE TO LEFT NARE PATENT POSITIVE FOR AUSCULTATION AND ASPIRATION. PT ON TUBE FEEDING NOVASOURCE AT 40ML/HR MINIMAL RESIDUALS NOTED. PT IS ANURIC HD ACCESS TO LEFT UPPER ARM POSITIVE FOR THRILL AND BRUIT. NO ACUTE DISTRESS NOTED. NOTED. PT SATURATIONS DROP TO MID 80'S DEEP SUCTIONING DONE. MODE AMOUNT OF THICK BLOOD TINGE SECRETIONS NOTED SATURATIONS INCREASED TO 99%. WILL CONTINUE TO MONITOR
[2016-07-02] MEDS: PANTOPRAZOLE 40 MG VIAL IV SCH (08:37)
[2016-07-02] MEDS: ASPIRIN 81 MG TAB.CHEW PO SCH (08:37)
[2016-07-02] MEDS: HYDROGEL DRESSING 90 GM TUBE TP SCH (08:38)
[2016-07-02] MEDS: NEOMY SULF/BACITRAC ZN/POLY 15 GM TUBE TP SCH (08:39)
--- NOTE | 2016-07-02 10:30 | NUR ---
LONG D/W AND DR MARQUEZ REGARDING GOALS OF CARE. DR Sonam BRADSHAW ALSO HERE DISCUSSING PLAN. NOW DNI/DNR STATUS, ONE HD TODAY THEN NO FURTHER, HOSPICE EVAL
--- NOTE | 2016-07-02 10:45 | NUR ---
RECEIVER; HD HD WAS STARTED ORDERED AT 1015. NOTED PT SATURATIONS DROP TO 70'S BRADYCARDIA HEART RATE 40'S. DEEP SUCTIONING DONE. AND PLACED PT ON SIMPLE MASK. PTS MICAH CALLED TO NOTIFY THAT PT IS DETERIORATING AND SUGGEST TO COME IN AND SEE PT. STATES THAT SHE IS ON HER WAY.
--- NOTE | 2016-07-02 11:02 | NUR ---
NO CODE STATUS. DNI/DNR STATUS. APNEIC. NO RESPIRATORY EFFORT. ASYSTOLE ON MONITOR. NO PALPABLE PULSES. NO OBTAINABLE BP. PUPILS FIXED AND DILATED. PT PRONOUNCED .
== END 2016-07-02 11:02 | disposition expired | DRG 871 ==
LOC: ER 05:25 → EDBD 05:25 → ICU 08:49
PROVIDERS: ADMIT Internal Medicine; ATTEND Internal Medicine
PROC: 5A1945Z Respiratory Ventilation, 24-96 Consecutive Hours (ICD-10-PCS; principal; 2016-06-22)
PROC: 0BH17EZ Insertion of Endotracheal Airway into Trachea, Via Natural or Artificial Opening (ICD-10-PCS; 2016-06-22)
PROC: 02HV33Z Insertion of Infusion Device into Superior Vena Cava, Percutaneous Approach (ICD-10-PCS; 2016-06-22)
PROC: B548ZZA Ultrasonography of Superior Vena Cava, Guidance (ICD-10-PCS; 2016-06-22)
PROC: 5A1D60Z (ICD-10-PCS; 2016-06-22)
DX: A41.9 Sepsis, unspecified organism (principal); R65.21 Severe sepsis with septic shock; J96.01 Acute respiratory failure with hypoxia; J69.0 Pneumonitis due to inhalation of food and vomit; J96.02 Acute respiratory failure with hypercapnia; N18.6 End stage renal disease; I50.33 Acute on chronic diastolic (congestive) heart failure; Z51.5 Encounter for palliative care; G93.41 Metabolic encephalopathy; J90 Pleural effusion, not elsewhere classified; I13.2 Hypertensive heart and chronic kidney disease with heart failure and with stage 5 chronic kidney disease, or end stage renal disease; J98.11 Atelectasis; E03.9 Hypothyroidism, unspecified; K21.9 Gastro-esophageal reflux disease without esophagitis; N40.0 Benign prostatic hyperplasia without lower urinary tract symptoms; I25.10 Atherosclerotic heart disease of native coronary artery without angina pectoris; D63.8 Anemia in other chronic diseases classified elsewhere; D46.9 Myelodysplastic syndrome, unspecified; D69.2 Other nonthrombocytopenic purpura; Z87.01 Personal history of pneumonia (recurrent); Z99.2 Dependence on renal dialysis; E83.9 Disorder of mineral metabolism, unspecified; D45 Polycythemia vera; S51.801A Unspecified open wound of right forearm, initial encounter; X58.XXXA Exposure to other specified factors, initial encounter; Y93.9 Activity, unspecified; Y92.009 Unspecified place in unspecified non-institutional (private) residence as the place of occurrence of the external cause; Y99.9 Unspecified external cause status; L89.151 Pressure ulcer of sacral region, stage 1; L89.621 Pressure ulcer of left heel, stage 1; L89.611 Pressure ulcer of right heel, stage 1; S70.02XA Contusion of left hip, initial encounter; S10.93XA Contusion of unspecified part of neck, initial encounter
CPT/HCPCS: 31720; 36415; 36600; 70450-TC; 71010-TC; 80048-TC; 80053-TC; 80076-TC; 80150; 80202-TC; 83605-TC; 83735-TC; 84100-TC; 84443-TC; 84484-TC; 85025-TC; 85730-TC; 86704; 86705; 86706; 86803; 87040-TC; 87070-TC; 87081-TC; 87340; 90935-TC; 92611-TC; 93307-TC; 93971-TC; 94002-TC; 94003-TC; 94760-TC; 94799-TC; 97001-TC; A4216; A4606; A6248; A6402; C1751; C9113; J0278; J0456; J0696; J0885; J1265; J2185; J2248; J2270; J2370; J2405; J2543; J3370; J3475; J3490; J7030; J7040; J7050; J7060; P9047; Z7610